=== PATIENT | male | born 1945 | race Caucasian/White ===

== ENCOUNTER 2018-06-26 15:14 | Outpatient (CLI) | payer MEDICARE, OTHER ==
--- NOTE | 2018-06-26 17:24 | MRI ---
MRI LUMBAR SPINE NONCONTRAST: 06/26/18 HISTORY: Low back pain with left leg radiculopathy. FINDINGS: The conus medullaris has a normal appearance. Vertebral body heights and alignment are maintained. Th ere is desiccation of the four lowest intervertebral discs. T12-L1, L1-2: Central canal and neural foramina are patent. L2-3: Minimal disc bulge. Degenerative changes of the facets. No significant central canal or foramin al stenosis. L3-4: Mild disc space narrowing. Posterior disc bulge and circumferential degenerative changes. Mild stenosis of the central canal. Mild to moderate stenosis of each neural foramen. Small amount of efrain ma associated with a Schmorl's node protruding through the inferior end plate of L3. L4-5: Posterior disc bulge is greater to the left of midline. Circumferential degenerative changes wi th moderate to severe stenosis of the central canal and mild stenosis of each neural foramen. L5-S1: Disc space narrowing and minimal degenerative retrolisthesis. Mild disc bulge. Thecal sac sophia ins patent. Degenerative changes with mild stenosis of the right neural foramen. IMPRESSION: Degenerative changes of the lower lumbar spine as detailed above. Stenosis greatest at the central ca nal L4-5 level. POS: [facility]
== END 2018-06-26 15:15 | disposition home or self-care (01) ==
LOC: SCSMRI 15:14
PROVIDERS: ATTEND Neurological Surgery
DX: M47.26 Other spondylosis with radiculopathy, lumbar region (principal); M48.061 Spinal stenosis, lumbar region without neurogenic claudication
CPT/HCPCS: 72148

== ENCOUNTER 2019-02-07 12:03 | Outpatient (CLI) | payer MEDICARE, OTHER ==
[2019-02-07 13:27] LABS: Hemoglobin 14.9 g/dL (14.0-18.0); Mean Corpuscular HGB CONC 32.1 g/dL (32.0-36.0); Mean Corpuscular Hemoglobin 27.3 pg (27.0-31.0); Mean Corpuscular Volume 84.9 fL (78.0-98.0); Mean Platelet Volume 9.8 fL (7.4-10.4); Platelet Count 220 thou/uL (130-400); RBC Distribution Width 14.7 % (11.5-14.5); Red Blood Cell (RBC) Count 5.46 mill/uL (4.70-6.10); White Blood Cell (WBC) Count 7.9 thou/uL (4.8-10.8)
[2019-02-07 13:45] LABS: Anion Gap 12 mmol/L (10-20); BUN (Urea Nitrogen) 14 mg/dL (8.4-25.7); Calc. Creatinine Clearance 0 mL/min (70-130); Calcium 9.7 mg/dL (7.8-10.44); Carbon Dioxide 26 mmol/L (23-31); Chloride 103 mmol/L (98-107); Estimated GFR-MDRD 57; Glucose 95 mg/dL (83-110); Potassium 4.3 mmol/L (3.5-5.1); Sodium 137 mmol/L (136-145)
--- NOTE | 2019-02-07 18:52 | EKG ---
Test Reason : Blood Pressure : / mmHG Vent. Rate : 064 BPM Atrial Rate : 064 BPM P-R Int : 168 ms QRS Dur : 098 ms QT Int : 400 ms P-R-T Axes : 056 076 009 degrees QTc Int : 412 ms Normal sinus rhythm Normal ECG No previous ECGs available Confirmed by VARUN REBOLLEDO, DR. Purvis ([id number]) on 02/07/2019 6:52:39 PM Referred By: DOC Confirmed By:DR. Hyun BOND MD
== END 2019-02-07 12:04 | disposition home or self-care (01) ==
LOC: LABBT 12:03
PROVIDERS: ATTEND Neurological Surgery
DX: Z01.818 Encounter for other preprocedural examination (principal); M48.062 Spinal stenosis, lumbar region with neurogenic claudication; M54.16 Radiculopathy, lumbar region
CPT/HCPCS: 80048; 85027; 93005; 93010

== ENCOUNTER 2019-02-10 06:20 | Day surgery (SDC) | payer MEDICARE, OTHER ==
[2019-02-07 12:11] VITALS: BMI 26.5
[2019-02-10] MEDS ORDERED: Fentanyl 250 MCG/5 ML VIAL ONE (08:42)
[2019-02-10] MEDS ORDERED: Bupivacaine HCl 0.5%/Epinephrine 1:200,000/PF 30 ml Vial ONE (08:44)
--- NOTE | 2019-02-10 10:28 | OP ---
DATE OF PROCEDURE: 02/10/2019 [employer] SUPERVISOR: Shady Whatley PA-C INDICATION: Pain. DIAGNOSIS: Lumbar stenosis. PROCEDURE PERFORMED: L4-L5 lumbar decompression. ANESTHESIA: General. DESCRIPTION OF PROCEDURE: The patient was brought into the operating room and placed under general anesthesia. He was flipped from the supine to prone position on the operating room table. A linear incision was planned over L4-L5. After prepping and draping and after an appropriate operative pause, the incision was created. The soft tissues were swept away from midline. Self-retaining retractors were placed in the wound for optimal exposure. After confirming appropriate level with C-arm fluoroscopy, high-speed cutting drill bit as well as 2, 3, and 4 mm Kerrisons were used to perform a laminectomy along the inferior aspect of L4 and superior aspect of L5. The laminectomy was extended laterally to encompass the medial aspect of the facet joints. After the decompression, the wound was irrigated. Hemostasis was maintained throughout. The wound was then closed in anatomic layers, and a pressure dressing was applied. There were no known procedural complications. Job ID: [id number]
[2019-02-10] MEDS ORDERED: Fentanyl 100 MCG/2 ML VIAL ONE (11:01)
[2019-02-10] MEDS ORDERED: PHENYLEPHRINE-NS 100 MCG/ML 10 ML SYRINGE ONE (12:37)
[2019-02-10] MEDS ORDERED: Rocuronium Bromide 10 MG/ML (10ML VIAL) ONE (12:37)
[2019-02-10] MEDS ORDERED: Lidocaine 1% PF 5 ML VIAL ONE (12:37)
[2019-02-10] MEDS ORDERED: Ondansetron PF 4 MG/2 ML Vial ONE (12:37)
[2019-02-10] MEDS ORDERED: Dexamethasone 20 MG/5 ML VIAL ONE (12:37)
[2019-02-10] MEDS ORDERED: PROPOFOL 200 MG/20 ML VIAL ONE (12:37)
[2019-02-10] MEDS ORDERED: Glycopyrrolate 0.2 MG/ML 5 ML SYRINGE ONE (12:37)
[2019-02-10] MEDS ORDERED: Esmolol 100 MG/10 ML VIAL ONE (12:37)
[2019-02-10] MEDS ORDERED: ePHEDrine 50 MG/ML VIAL ONE (12:37)
[2019-02-10] MEDS ORDERED: Tamsulosin HCl 0.4 MG CAP ONE (12:41)
== END 2019-02-10 15:00 | disposition home or self-care (01) ==
LOC: SDC 06:20
PROVIDERS: ATTEND Neurological Surgery
PROC: 01NB0ZZ Release Lumbar Nerve, Open Approach (ICD-10-PCS; principal; 2019-02-10)
DX: M48.061 Spinal stenosis, lumbar region without neurogenic claudication (principal); M54.16 Radiculopathy, lumbar region; I10 Essential (primary) hypertension; I25.10 Atherosclerotic heart disease of native coronary artery without angina pectoris; M19.90 Unspecified osteoarthritis, unspecified site; Z87.891 Personal history of nicotine dependence; F41.9 Anxiety disorder, unspecified; E78.2 Mixed hyperlipidemia; Z79.02 Long term (current) use of antithrombotics/antiplatelets; Z79.899 Other long term (current) drug therapy
CPT/HCPCS: 76000; J0670; J0690; J1100; J2001; J2405; J2704; J3010; J3490

== ENCOUNTER 2019-04-15 12:09 | Outpatient (CLI) | payer MEDICARE, OTHER ==
--- NOTE | 2019-04-15 16:48 | MRI ---
Exam: MRI lumbar spine with and without contrast COMPARISON: 06/26/2018 HISTORY: Pain. Surgery. TECHNIQUE: MR lumbar spine is performed with and without intravenous gadolinium administration. Multi sequential, multiplanar imaging is performed FINDINGS: Appropriate T1 marrow signal intensity of the lumbar vertebra. Lumbar spine vertebral body height is maintained. No fracture. Straightening of normal lumbar lordosis. No significant STIR hyperintensity to suggest vertebral body edema or ligamentous injury. Minimal type I Modic changes at L3-L4. Schmorl's nodes along the inferior endplate of L3 and superior endplate of L4 noted Appropriate signal intensity of the paraspinal muscles and solid organs. There are left parapelvic cy sts. Appropriate signal intensity visualized spinal cord. Conus medullaris terminates at the mid L1 level. Laminectomy defect at L4-L5. Postcontrast images demonstrate enhancing scar tissue the operative site . Postcontrast images do not demonstrate abnormal enhancement with regards to the vertebral bodies or w ith regards to the contents of the thecal sac including the cauda equina and conus medullaris. Minimal enhancement along the inferior plate of L3 suggesting an active Schmorl's node T12-L1: Adequate disc hydration. No significant central canal stenosis or significant foraminal narro wing L1-L2: Adequate disc hydration. No significant central canal stenosis or significant neural foraminal narrowing L2-L3: Adequate disc hydration. Minimal posterior scattered mildly. Minimal ligament flavum thickenin g and facet hypertrophy. No significant canal stenosis or significant neural foraminal narrowing L3-L4: Moderate loss of disc space height. Broad-based disc bulge, ligamentum flavum thickening and f acet hypertrophy result in mild to moderate central canal stenosis. There is disc material in the left and right subarticular zone. There is mass effect and partial obscuration of bilateral traversin g L4 nerve roots. Annular fissure does abut the traversing left L4 nerve root. Mild right neural foraminal narrowing. Moderate left neural foraminal narrowing. L4-L5: Mild loss of disc space height. There is a central/left subareolar disc protrusion. There is n o significant stenosis of the thecal sac or right subarticular zone. There is complete obscuration traversing left L5 nerve root secondary to disc material. There appears be annular fissure associated with the left subarticular disc herniation. Posterior laminectomy defect with enhancing scar tissue at the operative site. There is also enhancing scar tissue in the left subarticular zone which as to the overall obscuration the traversing left L5 nerve root. When compared to the previous examination, the degree of right subarticular stenosis has slightly improved. Persistent and essentia lly stable narrowing of the left subarticular zone due to disc material and scar tissue. L5-S1: Desiccation with moderate loss of disc space height. Broad-based disc bulge with disc material abutting both traversing S1 nerve roots. Partial obscuration. No significant stenosis of the thecal sac. Moderate to severe right and moderate left neural foraminal narrowing. IMPRESSION: 1. Interval laminectomy defect at L4-L5. 2. Narrowing of both subarticular zones at L3-L4 with partial obscuration of bilateral traversing L4 nerve roots. The degree of narrowing of the subarticular zones has slightly progressed when compared to the previous examination. 3. Redemonstration of a disc herniation at the L4-L5 level into the left subarticular zone. Associate d annular fissure. There is obscuration of the traversing left L5 nerve root secondary to disc material and scar tissue. 4. Redemonstration of multilevel neural foraminal narrowing as detailed above. Transcribed Date/Time: 04/15/2019 4:55 PM
== END 2019-04-15 12:10 | disposition home or self-care (01) ==
LOC: SCSMRI 12:09
PROVIDERS: ATTEND Neurological Surgery
DX: M51.16 Intervertebral disc disorders with radiculopathy, lumbar region (principal); M48.061 Spinal stenosis, lumbar region without neurogenic claudication; M48.07 Spinal stenosis, lumbosacral region; Q05.7 Lumbar spina bifida without hydrocephalus; L90.5 Scar conditions and fibrosis of skin; Z98.890 Other specified postprocedural states
CPT/HCPCS: 72158; 82565

== ENCOUNTER 2021-03-21 08:37 | Outpatient (CLI) | payer MEDICARE, OTHER | END 2021-03-21 08:38 | disposition home or self-care (01) | LOC: SCSRAD 08:37 | PROVIDERS: ATTEND Neurological Surgery | DX: M54.50 Low back pain, unspecified (principal); M47.816 Spondylosis without myelopathy or radiculopathy, lumbar region; Z98.890 Other specified postprocedural states | CPT/HCPCS: 72100 ==

== ENCOUNTER 2023-12-28 07:59 | Outpatient (CLI) | payer MEDICARE, OTHER | END 2023-12-28 08:00 | disposition home or self-care (01) | LOC: SCSMRI 07:59 | PROVIDERS: ATTEND Family Medicine Sports Medicine | DX: M47.26 Other spondylosis with radiculopathy, lumbar region (principal); M51.16 Intervertebral disc disorders with radiculopathy, lumbar region; M47.815 Spondylosis without myelopathy or radiculopathy, thoracolumbar region; M48.061 Spinal stenosis, lumbar region without neurogenic claudication; M47.817 Spondylosis without myelopathy or radiculopathy, lumbosacral region; M51.37 Other intervertebral disc degeneration, lumbosacral region; M48.07 Spinal stenosis, lumbosacral region; M51.46 Schmorl's nodes, lumbar region; K76.89 Other specified diseases of liver; N28.9 Disorder of kidney and ureter, unspecified | CPT/HCPCS: 72148 ==

== ENCOUNTER 2024-12-11 07:17 | Day surgery (SDC) | payer MEDICARE, OTHER ==
[2024-12-09 11:27] VITALS: BMI 25.1
[2024-12-11] MEDS ORDERED: CEFAZOLIN 2 GM VIAL ONE (08:21)
[2024-12-11] MEDS ORDERED: fentaNYL PF 100 MCG/2 ML SYRINGE ONE (08:25)
[2024-12-11] MEDS ORDERED: PROPOFOL 20 ML ONE (08:25)
== END 2024-12-11 09:54 | disposition home or self-care (01) ==
LOC: SDC 07:17
PROVIDERS: ATTEND Orthopaedic Surgery
PROC: 01N54ZZ Release Median Nerve, Percutaneous Endoscopic Approach (ICD-10-PCS; principal; 2024-12-11)
DX: G56.03 Carpal tunnel syndrome, bilateral upper limbs (principal); M19.041 Primary osteoarthritis, right hand; M19.042 Primary osteoarthritis, left hand; I10 Essential (primary) hypertension; E78.00 Pure hypercholesterolemia, unspecified; Z98.41 Cataract extraction status, right eye; Z98.42 Cataract extraction status, left eye; Z87.891 Personal history of nicotine dependence; Z90.89 Acquired absence of other organs; Z90.49 Acquired absence of other specified parts of digestive tract; Z79.899 Other long term (current) drug therapy
CPT/HCPCS: 29848; A6223; J0665; J2704 ×2

== ENCOUNTER 2025-02-09 05:59 | Day surgery (SDC) | payer MEDICARE, OTHER ==
[2025-02-06 12:18] VITALS: BMI 25.1
[2025-02-09 06:40] LABS: #Basophils 0.05 10x3/uL (0.0-0.2); #Eosinophils 0.16 10x3/uL (0.0-0.7); #Monocytes 0.49 10x3/uL (0.11-0.59); #Neutrophils 4.43 10x3/uL (1.40-6.50); %Basophils 0.8 % (0.0-1.0); %Eosinophils 2.5 % (0.0-10.0); %Lymphocytes 18.0 % (21.0-51.0); %Monocytes 7.8 % (0.0-10.0); %Neutrophils 70.6 % (42.0-75.0); Hematocrit 45.5 % (42.0-52.0); Hemoglobin 14.7 g/dL (14.0-18.0); Mean Corpuscular Hemoglobin 29.5 pg (27.0-31.0); Mean Corpuscular Volume 91.2 fL (78.0-98.0); Platelet Count 193 10x3/uL (130-400); Red Blood Cell (RBC) Count 4.99 mill/uL (4.70-6.10); White Blood Cell (WBC) Count 6.28 10x3/uL (4.8-10.8)
[2025-02-09 06:54] LABS: Anion Gap 14 mmol/L (10-20); BUN (Urea Nitrogen) 17 mg/dL (8.4-25.7); Calc. Creatinine Clearance 64 mL/min (70-130); Calcium 9.1 mg/dL (7.8-10.44); Carbon Dioxide 26 mmol/L (23-31); Chloride 104 mmol/L (98-107); Glucose 109 mg/dL (83-110); Potassium 3.8 mmol/L (3.5-5.1); Sodium 140 mmol/L (136-145)
[2025-02-09] MEDS ORDERED: PROPOFOL 0 ML ONE (07:04)
[2025-02-09] MEDS ORDERED: CEFAZOLIN 2 GM VIAL ONE (07:14)
[2025-02-09] MEDS ORDERED: PROPOFOL 20 ML ONE (07:15)
[2025-02-09] MEDS ORDERED: fentaNYL PF 100 MCG/2 ML SYRINGE ONE (07:15)
[2025-02-09] MEDS ORDERED: Lidocaine 1% PF 5 ML VIAL ONE (07:15)
[2025-02-09] MEDS ORDERED: Ondansetron PF 4 MG/2 ML Vial ONE (07:15)
[2025-02-09] MEDS ORDERED: Albuterol HFA (OR) 200 PUFF INH ONE (07:30)
== END 2025-02-09 09:30 | disposition home or self-care (01) ==
LOC: SDC 05:59
PROVIDERS: ATTEND Orthopaedic Surgery
PROC: 01N50ZZ Release Median Nerve, Open Approach (ICD-10-PCS; principal; 2025-02-09)
DX: G56.02 Carpal tunnel syndrome, left upper limb (principal); M19.041 Primary osteoarthritis, right hand; M19.042 Primary osteoarthritis, left hand; I10 Essential (primary) hypertension; E78.5 Hyperlipidemia, unspecified
CPT/HCPCS: 29848; 80048; 85025; J0665; J1100; J2704; A6223